=== PATIENT | male | born 1960 | race Caucasian/White ===

== ENCOUNTER 2018-06-22 10:41 | Inpatient (IN) | payer OTHER ==
[~2018-06-22] VITALS: Ht 182.9 cm; Wt 131.0 kg
[2018-06-22] MEDS ORDERED: SODIUM CHLORIDE FLUSH 10ML SYR IVF ONE (11:00)
[2018-06-22] MEDS ORDERED: PLEASE ENTER ALLERGIES MC SCH (11:00)
[2018-06-22] MEDS ORDERED: PLEASE ENTER HEIGHT AND WEIGHT MC SCH (11:00)
[2018-06-22] MEDS ORDERED: SODIUM CHLORIDE 0.9% 1,000ML IVBOLUS ONE (11:00)
[2018-06-22 11:07] LABS: BASOPHILS # (AUTO) 0.06 x10^3/uL (0-0.1); BASOPHILS % (AUTO) 1 % (0-1); EOSINOPHILS # (AUTO) 0.47 x10^3/uL (0-0.4); EOSINOPHILS % (AUTO) 4 % (1-7); LYMPHOCYTES # (AUTO) 1.53 x10^3/uL (1-3.4); LYMPHOCYTES % (AUTO) 13 % (22-44); MD NO; MEAN CORPUSCULAR HEMOGLOBIN 33.2 pg (27.5-34.5); MEAN CORPUSCULAR HGB CONC 34.3 g/dL (33.2-36.2); MEAN CORPUSCULAR VOLUME 96.9 fL (81-97); MEAN PLATELET VOLUME 8.8 fL (7.4-10.4); MONOCYTES # (AUTO) 0.58 x10^3/uL (0.2-0.8); MONOCYTES % (AUTO) 5 % (2-9); NEUTROPHILS # (AUTO) 8.75 x10^3/uL (1.8-6.8); NEUTROPHILS % (AUTO) 77 % (42-75); PLATELET COUNT 320 x10^3/uL (130-400); RED BLOOD COUNT 4.29 x10^6/uL (4.38-5.82); RED CELL DISTRIBUTION WIDTH 12.3 % (9.4-14.8)
[2018-06-22] MEDS ORDERED: ATEN50TA41 PO (11:14)
[2018-06-22] MEDS ORDERED: HYDR25TA6 PO (11:14)
[2018-06-22] MEDS ORDERED: WARF7.5T46 PO (11:14)
[2018-06-22] MEDS ORDERED: BUDE10.2 PO (11:14)
[2018-06-22] MEDS ORDERED: METO200T47 PO (11:14)
[2018-06-22] MEDS ORDERED: ALBU0.63 NEB (11:14)
[2018-06-22] MEDS ORDERED: INSU100C5 SQ-INSULIN (11:14)
[2018-06-22] MEDS ORDERED: INSU100V8 SQ (11:14)
[2018-06-22 11:18] LABS: ANION GAP 7 mmol/L (5-15); CALCIUM 8.4 mg/dL (8.5-10.1); CHLORIDE 104 mmol/L (98-107); CREATININE 1.45 mg/dL (0.7-1.3)
[2018-06-22 11:19] LABS: ALBUMIN 3.3 g/dL (3.4-5.0)
[2018-06-22 11:22] LABS: TROPONIN I < 0.015 ng/mL (0.000-0.045)
[2018-06-22 12:39] LABS: INTERNATIONAL NORMALIZED RATIO 1.53 (0.93-1.1); PROTHROMBIN TIME 15.6 Seconds (9.6-11.5)
[2018-06-22] MEDS ORDERED: METF500T17 PO (13:49)
[2018-06-22] MEDS ORDERED: ATOR-2 PO (13:49)
[2018-06-22] MEDS ORDERED: MONT10TA9 PO (13:49)
[2018-06-22] MEDS ORDERED: GABA300C10 PO (13:49)
[2018-06-22] MEDS ORDERED: OMEP-110 PO (13:49)
[2018-06-22] MEDS ORDERED: METO-99 PO (13:49)
[2018-06-22] MEDS ORDERED: LOSA100T7 PO (13:49)
[2018-06-22] MEDS ORDERED: hydrALAzine 20 MG/ML, 1ML IVPush PRN (14:00)
[2018-06-22] MEDS ORDERED: ACETAMINOPHEN 325 MG TABLET PO PRN (14:00)
[2018-06-22] MEDS ORDERED: ONDANSETRON ODT 4 MG PO PRN (14:00)
[2018-06-22] MEDS ORDERED: HEPARIN 5,000 UNITS/ML, 1ML SQ SCH (14:00)
[2018-06-22] MEDS ORDERED: ONDANSETRON 2MG/ML, 2ML IVPush PRN (14:00)
[2018-06-22 14:13] VITALS: BP 157/90
[2018-06-22 15:21] LABS: HEMOGLOBIN A1C 7.9 % (4.2-6.3)
[2018-06-22 16:05] VITALS: BP_SYST 128; BP_SYST 146; BP_DIAS 80; BP_DIAS 85
[2018-06-22 16:06] VITALS: BP 149/67
[2018-06-22 16:32] LABS: AMPHETAMINE SCREEN, URINE Negative (Negative); BARBITURATE SCREEN, URINE Negative (Negative); BENZODIAZEPINE SCREEN, URINE Negative (Negative); CANNABINOID SCREEN, URINE Negative (Negative); COCAINE SCREEN, URINE Negative (Negative)
[2018-06-22 16:33] LABS: METHADONE SCREEN, URINE Negative (Negative); OPIATE SCREEN, URINE Negative (Negative)
[2018-06-22 16:52] LABS: MICROSCOPIC INDICATED
[2018-06-22 16:58] LABS: CULTURE INDICATED? NO
[2018-06-22] MEDS ORDERED: SODIUM CHLORIDE 0.9% 1,000 ML IV ONE (17:30)
== END 2018-06-22 18:00 | disposition left against medical advice (07) | DRG 309 ==
LOC: ED 13:36 → EDIP 13:37 → ED 14:02 → 5SO 14:24
PROVIDERS: ADMIT Internal Medicine; ATTEND Internal Medicine
DX: I49.8 Other specified cardiac arrhythmias (principal); D68.59 Other primary thrombophilia; N17.9 Acute kidney failure, unspecified; I48.2 Chronic atrial fibrillation; E11.9 Type 2 diabetes mellitus without complications; E66.9 Obesity, unspecified; G47.30 Sleep apnea, unspecified; I10 Essential (primary) hypertension; J45.909 Unspecified asthma, uncomplicated; Z79.01 Long term (current) use of anticoagulants; Z79.4 Long term (current) use of insulin; Z79.899 Other long term (current) drug therapy; Z88.8 Allergy status to other drugs, medicaments and biological substances; Z80.3 Family history of malignant neoplasm of breast; Z80.0 Family history of malignant neoplasm of digestive organs; Z83.3 Family history of diabetes mellitus; Z82.49 Family history of ischemic heart disease and other diseases of the circulatory system; Z68.39 Body mass index [BMI] 39.0-39.9, adult; Z53.21 Procedure and treatment not carried out due to patient leaving prior to being seen by health care provider
CPT/HCPCS: 36415; 70450; 71045; 71250; 80048; 80307; 81001; 82040; 83036; 84443; 84484; 85025; 85610; 93005; C8929; G0378; Q9957; J7030